=== PATIENT | male | born 1995 | race Two or more races ===

== ENCOUNTER 2017-08-19 08:00 | Emergency (ER) | payer MEDICAID ==
[~2017-08-19] VITALS: Ht 175.3 cm; Wt 74.8 kg
--- NOTE | 2017-08-19 08:06 | Emergency Room Report ---
History of Present Illness General Chief Complaint: To Be Triaged Source: Patient Present Illness HPI 22 yo M with no known pmhx of p/w chest pain for 6 hours. Chest pain started while after injecting heroin to left arm. Patient denies other drug use or alcohol. Patient denies using cocaine recently. Localized to substernal area, no radiation to back or other areas, sharp in nature, associated with abdominal pain and sweating..Occurred at rest.This is the first occurrence of chest pain. Denies fever, chills, cough, Denies trauma. Patient has never had a cardiac catheterization. Denies smoking, no family history of cardiac disease at a young age. Allergies: Coded Allergies: CARBAMAZEPINE (Verified Allergy, Severe, Anaphylaxis, 08/19/17) john andrew syndrom PENICILLINS (Verified Allergy, Severe, 08/19/17) cough up blood Patient History Past Medical History: none Past Surgical History: none Pertinent Family History: none Social History: Reports: smoking, drug use Review of Systems All Other Systems: negative except mentioned in HPI Physical Exam Sp02 EP Interpretation: reviewed, normal General Appearance: normal inspection, well appearing, no apparent distress, alert, GCS 15, non-toxic Head: normocephalic, atraumatic Eyes: bilateral eye PERRL, bilateral eye EOMI ENT: normal ENT inspection, hearing grossly normal, normal voice Neck: normal inspection, full range of motion, supple, no bony tend Respiratory: normal inspection, lungs clear, normal breath sounds, no respiratory distress, no retraction, no wheezing Cardiovascular #1: regular rate, rhythm, no edema Gastrointestinal: normal inspection, normal bowel sounds, non tender, soft, no guarding, no hernia Genitourinary: no CVA tenderness Musculoskeletal: normal inspection, back normal, normal range of motion, Syed' s Sign negative Neurologic: normal inspection, alert, oriented x3, responsive, solids control technician III-XII nml as tested, speech normal Psychiatric: normal inspection, judgement/insight normal, mood/affect normal Skin: normal inspection, normal color, no rash Medical Decision Making Diagnostic Impression: Primary Impression: Chest pain Qualified Codes: R07.9 - Chest pain, unspecified Additional Impressions: Methamphetamine abuse Heroin use ER Course 22 with p/w CP DDX: polysubstance abuse vs gastritis vs MSK Unlikely ACS or CHF or PE or dissection given other diagnoses more likely and patient's well appearance, stable vital signs and no history of CAD Lungs are clear to auscultation bilaterally so low suspicion for pneumothorax Plan: ECG, urine drug screen, Tylenol ER course: Labs: troponin negative EKG: NSR Rate: 65 Rhythm: Normal sinus rhythm ST segments: No ischemia Patient remained chest pain free during ED stay. Utox + for meth, barbituates, opiods Patient was on barbs for rehab - suspecs meth was in heroin Likely source for his tachycardia, chest pain Disposition: Patient will be discharged to home. Offered rehab but patient refused Strict precautions discussed with patient on when to emergently return to the ED : this includes worsening/severe chest pain, palpitations, shortness of breath, syncopal episodes, fever or chills, which may indicate severe illness. Patient verbalized understanding. Patient instructed to follow up with their PMD within the next 2 days. *Patient also instructed to follow up with a orderly within 2 days for possible outpatient stress test. Patient agrees with plan. Please note that this Emergency Department Report was dictated using [employer] technology software, occasionally this can lead to erroneous entry secondary to interpretation by the dictation equipment EKG Diagnostic Results Rate: normal Rhythm: NSR ASA given to the pt in ED: No Status: improved Disposition: HOME, SELF-CARE JOJO LOPEZ M.D. Aug 19, 2017 08:06
[2017-08-19 08:19] VITALS: BP 133/96
[2017-08-19 10:30] VITALS: BP 133/70
[2017-08-19 10:52] VITALS: BP 119/67
--- NOTE | 2017-08-29 16:31 | Cardiology Report ---
APPROVED REPORT EKG Measurement Heart [id number] [id number] Normal sinus rhythm Voltage criteria for LVH Abnormal ECG
== END 2017-08-19 10:52 | disposition home or self-care (01) ==
LOC: EMR 08:27
DX: R07.9 Chest pain, unspecified (principal); F15.10 Other stimulant abuse, uncomplicated; F11.90 Opioid use, unspecified, uncomplicated; Z88.0 Allergy status to penicillin; Z88.8 Allergy status to other drugs, medicaments and biological substances; F17.200 Nicotine dependence, unspecified, uncomplicated
CPT/HCPCS: 80307; 93005; 99282